=== PATIENT | male | born 1975 | race Caucasian/White ===

== ENCOUNTER → 2016-11-02 12:11 | Outpatient (CLI) | payer MEDICAID | END | disposition home or self-care (01) | LOC: D.RAD 12:11 | DX: S43.491A Other sprain of right shoulder joint, initial encounter (principal) ==

== ENCOUNTER 2016-11-26 09:42 | Day surgery (SDC) | payer MEDICAID ==
[~2016-11-26] VITALS: Ht 180.3 cm; Wt 87.1 kg
[2016-11-26 11:54] VITALS: BP 122/75; Ht 180.3 cm; Wt 87.1 kg
[2016-11-26] MEDS ORDERED: PERCOCET 10/3251 TA1 PO (15:10)
--- NOTE | 2016-11-26 17:13 | NUR ---
IV DC WITH CATHER TIP INTACT
--- NOTE | 2016-12-03 13:14 | OP ---
PATIENT NAME: SVITLANA ROWE MEDICAL RECORD: [id number] :73 LOCATION:D.OPS ADMISSION DATE: SURGEON: YOEL PEREZ, QUINCY SPAULDING OPERATION DATE: 11/26/16 DATE OF OPERATION: 11/26/2016 PREOPERATIVE DIAGNOSIS: Rotator cuff tear of the right shoulder with displaced malunited tuberosity fragment. POSTOPERATIVE DIAGNOSIS: Rotator cuff tear of the right shoulder with displaced malunited tuberosity fragment plus severe biceps tendinitis. PROCEDURES: 1. Open rotator cuff repair of the right shoulder. 2. Bicipital tenodesis of the right shoulder. 3. Removal of the malunited fragment. SURGEON: Quincy Diallo MD ANESTHESIA: General. INTRAOPERATIVE COMPLICATIONS: None. SUMMARY OF PATHOLOGIC FINDINGS: The patient had a very large malunited fragment of the greater tuberosity which was closely adherent to the rotator cuff which was displaced laterally. This required complete dissection of the rotator cuff off the area exposing severe biceps tendinitis as well as substantial work for rotator cuff repair. OPERATIVE SUMMARY IN DETAIL: After obtaining the appropriate preoperative orthopedic surgery consent as well as anesthetic consultation, evaluation and clearance operating room and placed on the table in supine position. After general laryngeal mask was administered, the patient was placed in the beach chair position. All pressure points were well padded. The patient was held firmly to the operating table using the vacuum pack suction system. Right upper extremity and shoulder were prepped and draped in routine sterile fashion. The arm was held in the Trimano arm holding device. A saber-type incision was made at the junction of the deltoid origin on the acromion. Dissection was carried down. A good cuff of the deltoid was left. Dissection was carried about the front of the acromion. The patient did have impingement-type anatomy with excoriation and tearing of the rotator cuff. Subacromial decompression was performed. At this point, the rotator cuff in and about the area of nonunion and [place] tear was elevated for good visualization of the nonunion. The dissection was carried off the portion of the greater tuberosity which was causing severe impingement. This was removed. At this point, the biceps tendon was sutured and then cut at the labrum root and removed and then an Arthrex FiberLoop was then placed at the appropriate depth on the tendon and then a size 9 tenodesis screw was placed in the mid aspect of the bicipital groove with good fixation of the biceps completing the tenodesis. Having smoothed down the decorticated portion of the supraspinatus tendinous footprint, a combination of both double row fixation with the Arthrex kit as well as 2 additional anchors were utilized to reapproximate the rotator cuff back into its usual position. Having completed this, the wound was copiously irrigated. The deltoid was then reapproximated to the acromion, both anterolaterally and laterally using a #2 OPERATIVE REPORT [id number] SVITLANA ROWE in an imbricated style [id number] suture. The wound was again copiously irrigated at this point and closed with #1 Vicryl followed by skin abigail. Sterile dressings were applied. The patient was awakened, taken to recovery room in stable condition. All final needle and sponge counts were correct. TRANSINT:[id number] Voice Confirmation ID: [id number] DOCUMENT ID: [id number] QUINCY DIALLO MD at 1314 CC: [id number] DICTATION DATE: 11/27/16 1049 SENIOR ACCOUNTANT ANALYST: 12/03/16 0006 [facility] 11/26/16 [facility] [address] [place] [address]
== END 2016-11-26 17:15 | disposition home or self-care (01) ==
LOC: D.OPS 09:42 → D.PAN 11:40 → D.OPS 12:15 → D.PAN 15:30 → D.OPS 15:30
DX: M75.101 Unspecified rotator cuff tear or rupture of right shoulder, not specified as traumatic (principal); M75.41 Impingement syndrome of right shoulder; S43.491A Other sprain of right shoulder joint, initial encounter; F17.200 Nicotine dependence, unspecified, uncomplicated; K21.9 Gastro-esophageal reflux disease without esophagitis; Z01.812 Encounter for preprocedural laboratory examination

== ENCOUNTER 2017-02-08 08:11 | Day surgery (SDC) | payer MEDICAID ==
[~2017-02-08] VITALS: Ht 180.3 cm; Wt 87.3 kg
[~2017-02-08 08:11] MED LIST: PERCOCET 10/3251 TA1 PO
[2017-02-08 10:07] VITALS: BP 132/78; Ht 180.3 cm; Wt 87.3 kg
[2017-02-08 10:34] LABS: HEMATOCRIT 32.2 % (42.0-54.0); HEMOGLOBIN 10.6 g/dL (13.5-17.5); MCH 33.5 pg (26.0-34.0); MCHC 32.9 g/dL (31.0-37.0); MCV 101.9 fL (80.0-100.0); MEAN PLATELET VOLUME 11.4 fL (7.4-10.4); RBC 3.16 10x6/uL (4.20-6.10); RDW 15.2 % (11.5-14.5); WBC 2.5 10x3/uL (4.8-10.8)
[2017-02-08] MEDS ORDERED: HYDROCODONE-APA1 TAB PO (10:46)
== END 2017-02-08 12:00 | disposition home or self-care (01) ==
LOC: D.OPS 08:11 → D.PAN 12:45
PROVIDERS: Anesthesiology
DX: M75.01 Adhesive capsulitis of right shoulder (principal); F17.200 Nicotine dependence, unspecified, uncomplicated; Z01.812 Encounter for preprocedural laboratory examination

== ENCOUNTER 2018-06-26 17:56 | Emergency (ER) | payer MEDICAID ==
[~2018-06-26] VITALS: Ht 180.3 cm; Wt 79.5 kg
[~2018-06-26 17:56] MED LIST changes: +HYDROCODONE-APA1 TAB PO
[2018-06-26 18:03] VITALS: BP 140/74; Ht 180.3 cm; Wt 79.5 kg
[2018-06-26 18:28] LABS: BASOPHILS 0.3 % (0-2); EOSINOPHILS 1.5 % (0-7); HEMATOCRIT 34.2 % (42.0-54.0); HEMOGLOBIN 11.1 g/dL (13.5-17.5); IMMATURE GRANULOCYTES 0.3 % (0-5); LYMPHOCYTES 48.8 % (15-50); MCH 32.5 pg (26.0-34.0); MCHC 32.5 g/dL (31.0-37.0); MEAN PLATELET VOLUME 11.1 fL (7.4-10.4); MONOCYTES 2.9 % (2-11); NEUTROPHILS 46.2 % (40-80); PLATELET COUNT 198 10x3/uL (130-400); RBC 3.42 10x6/uL (4.20-6.10); RDW 13.8 % (11.5-14.5); WBC 3.4 10x3/uL (4.8-10.8)
[2018-06-26 18:50] LABS: CALC OSMOLALITY 278 mosm/kg (275-300); CALCIUM 8.4 mg/dL (8.5-10.1); CARBON DIOXIDE 29.7 mmol/L (21.0-32.0); CHLORIDE - SERUM 102 mmol/L (98-107); GLUCOSE 105 mg/dL (74-106); POTASSIUM - SERUM 3.2 mmol/L (3.5-5.1); SODIUM 140 mmol/L (136-145); THYROID STIMULATING HORMONE 1.14 uIU/mL (0.36-3.74); UREA NITROGEN 13 mg/dL (7-18); eGFR NON AFRICAN AMERICAN 86 mL/min (90-120)
[2018-06-26 19:24] LABS: APPEARANCE CLEAR (CLEAR); BILIRUBIN NEGATIVE (NEGATIVE); COLOR YELLOW (YELLOW); GLUCOSE NEGATIVE (NEGATIVE); KETONE NEGATIVE (NEGATIVE); NITRITE NEGATIVE (NEGATIVE); PROTEIN TRACE mg/dL (NEGATIVE); SPECIFIC GRAVITY 1.025 (1.005-1.020); UROBILINOGEN NORMAL (NORMAL)
[2018-06-26 19:29] LABS: EPITHELIAL CELLS 0-5 /hpf (0-5); RED CELLS - URINE 0-5 /hpf (0-5); WHITE CELLS - URINE 0-5 /hpf (0-5)
[2018-06-26 19:30] LABS: BACTERIA FEW /hpf (NONE SEEN); MUCUS >1+ /lpf (NONE SEEN)
[2018-06-26 19:41] LABS: UDS - AMPHET POSITIVE QUAL (NEGATIVE); UDS - BARB NEGATIVE QUAL (NEGATIVE); UDS - BENZO POSITIVE QUAL (NEGATIVE); UDS - COCAINE NEGATIVE QUAL (NEGATIVE); UDS - OPIATE NEGATIVE QUAL (NEGATIVE); UDS - PCP NEGATIVE QUAL (NEGATIVE); UDS - THC NEGATIVE QUAL (NEGATIVE)
== END 2018-06-27 01:01 ==
LOC: D.ER 17:56
PROVIDERS: Family Medicine
DX: F32.9 Major depressive disorder, single episode, unspecified (principal); Z91.5 Personal history of self-harm